=== PATIENT | male | born 1990 | race Caucasian/White ===

== ENCOUNTER 2024-03-28 07:35 | Emergency (ER) | payer OTHER ==
[2024-03-28] MEDS ORDERED: KETOROLAC 30 MG/ML INJ ONE (08:23)
[2024-03-28 08:44] LABS: Absolute Basophils 0.1 K/uL (0-0.5); Absolute Eosinophils 0.1 K/uL (0-0.5); Absolute Lymphocytes (CBC) 1.8 K/uL (0.7-4.9); Absolute Monocytes 0.5 K/uL (0.1-1.3); Absolute Neutrophil 5.1 K/uL (1.8-8.0); Eosinophils % 1.5 % (0-4.4); Hematocrit 44.1 % (39.6-49.0); Hemoglobin 15.3 g/dL (13.6-17.9); Lymphocytes % 23.8 % (15.3-44.8); MCH 30.9 pg (27.0-35.0); MCHC 34.7 g/dL (32.0-36.0); MCV 89.2 fL (80-100); MPV 10.5 fL (7.6-11.3); Neutrophils % 66.7 % (41.7-73.7); Platelets 235 thou/uL (152-406); RBC Red Blood Cell Count 4.95 M/uL (4.33-5.43); Red Cell Distribution Width 13.1 % (12.1-15.2)
--- NOTE | 2024-03-28 09:20 | RAD REPORT ---
Procedure: Chest Single View HISTORY: Chest pain COMPARISON: none FINDINGS: The lungs appear clear of acute infiltrate. No significant pleural effusion noted. The heart is normal size. IMPRESSION: No acute abnormality is displayed.
[2024-03-28 09:23] LABS: ALT/SGPT 33 U/L (16-61); AST/SGOT 24 U/L (15-37); Albumin 3.2 g/dL (3.4-5.0); Albumin/Globulin Ratio 0.9 (1.1-1.8); Alkaline Phosphatase 112 U/L (45-117); Anion Gap 12.3 mEq/L (5.0-15.0); BUN Blood Urea Nitrogen 8 mg/dL (7-18); Bicarbonate 24 mEq/L (21-32); Bilirubin Direct < 0.2 mg/dL (0-0.2); Bilirubin Indirect, Calculated 0.3 mg/dL (0.2-0.8); Bilirubin Total 0.5 mg/dL (0.2-1.0); Globulin 3.4 g/dL (2.3-3.5); Glomerular Filtration Rate 97 ml/min (=/>90); Glucose Level 480 mg/dL (74-106); Potassium 4.3 mEq/L (3.5-5.1); Protein, Total 6.6 g/dL (6.4-8.2); Troponin High Sensitivity 3.4 pg/mL (<58.9)
[2024-03-28 09:25] LABS: Sodium Level 134 mEq/L (136-145)
[2024-03-28] MEDS ORDERED: INSULIN REGULAR (HUMAN) 100 UNIT/ML ONE (09:39)
[2024-03-28] MEDS ORDERED: NA CHLORIDE 0.9% 2,000 ML ONE (09:40)
--- NOTE | 2024-03-28 12:16 | EKG ---
Test Date: 2024-03-28 Test Time: 08:04:32 Pathology Laboratory Technologist: BP MEASUREMENT RESULTS: Intervals: Rate: 67 CA: 140 QRSD: 84 QT: 422 QTc: 445 [place]: P: 41 CA: 140 QRS: 33 T: 19 INTERPRETIVE STATEMENTS: Normal sinus rhythm with sinus arrhythmia Normal ECG No previous ECG available for comparison Electronically Signed On 03-28-24 12:15:25 VAN DRIVER by Leif Erazo
--- NOTE | 2024-03-28 14:18 | ER ---
Nurse's Notes [facility] Name: Adan Kat Age: 33 yrs Sex: Male : 1990 Arrival Date: 03/28/2024 Time: 07:35 Bed 16 Private MD: Diagnosis: Chest pain, unspecified;Hyperglycemia, unspecified Presentation: 03/28 07:51 Chief complaint: Patient states: chest discomfort with L arm discomfort that began at ss 0300 this am. Coronavirus screen: Client denies travel out of the [place] in the last 14 days. Ebola Screen: Patient denies exposure to infectious person. Patient denies travel to an Ebola-affected area in the 21 days before illness onset. Initial Sepsis Screen: Does the patient meet any 2 criteria? No. Patient's initial sepsis screen is negative. Does the patient have a suspected source of infection? No. Patient's initial sepsis screen is negative. Risk Assessment: Do you want to hurt yourself or someone else? Patient reports no desire to harm self or others. Onset of symptoms was March 28, 2024. 07:51 Method Of Arrival: Ambulatory 07:51 Acuity: DONAL 3 ss Triage Assessment: 07:52 General: Appears in no apparent distress. comfortable, Behavior is calm, cooperative. ss Pain: Complains of pain in chest Pain currently is 2 out of 10 on a pain scale. Neuro: Level of Consciousness is awake, alert, obeys commands. Respiratory: Airway is patent Respiratory effort is even, unlabored. Historical: - Allergies: 07:52 No Known Allergies; ss - Home Meds: 07:52 None [Active]; ss - PMHx: 07:52 High cholesterol; Hypertensive disorder; ss - PSHx: 07:52 None; ss - Immunization history:: Client reports having NOT received the Covid vaccine. - Infectious Disease History:: Denies. - Social history:: Smoking status: Patient reports the use of cigarette tobacco products, denies chronic smoking, but will smoke occasionally. - Family history:: not pertinent. Screenin:00 [facility] ED Fall Risk Assessment (Adult) History of falling in the last 3 months, bp including since admission No falls in past 3 months (0 pts) Confusion or Disorientation No (0 pts) Intoxicated or Sedated No (0 pts) Impaired Gait No (0 pts) Mobility Assist Device Used No (0 pt) Altered Elimination No (0 pt) Score/Fall Risk Level 0 - 2 = Low Risk. Abuse screen: Denies threats or abuse. Denies injuries from another. Nutritional screening: No deficits noted. Tuberculosis screening: No symptoms or risk factors identified. Assessment: 08:00 Pain: Complains of pain in chest Pain radiates to left arm Pain began 4 hours ago. bp Cardiovascular: Reports chest pain. 10:00 Reassessment: Patient appears in no apparent distress at this time. Patient is alert, bp oriented x 3, equal unlabored respirations, skin warm/dry/pink. 12:30 Reassessment: Patient appears in no apparent distress at this time. Patient is alert, bp oriented x 3, equal unlabored respirations, skin warm/dry/pink. 14:30 Reassessment: Patient appears in no apparent distress at this time. Patient is alert, bp oriented x 3, equal unlabored respirations, skin warm/dry/pink. Vital Signs: 07:51 BP 141 / 87; Pulse 75; Resp 16; Pulse Ox 97% on R/A; Weight 99.79 kg; Height 5 ft. 9 ss in. ; Pain 2/10; 07:54 Temp 98(O); ss 12:08 BP 126 / 70; Pulse 51; Resp 16; Pulse Ox 96% ; bp 14:30 BP 114 / 58; Pulse 57; Resp 16; Temp 98; Pulse Ox 98% ; bp 07:51 Body Mass Index 32.49 (99.79 kg, 175.26 cm) ss 07:51 Pain Scale: Adult ss ED Course: 07:48 Patient arrived in ED. ra3 07:51 Kevin Millan MD is Attending Physician. rt 07:52 Triage completed. ss 07:52 Arm band placed on right wrist. ss 07:53 Lazaro Martinez, JOSÉ MIGUEL is Primary Nurse. bp 08:00 Patient has correct armband on for positive identification. Provided Education on: N/A. bp Client placed on continuous cardiac and pulse oximetry monitoring. NIBP monitoring applied. athletic monitor on. Pulse ox on. NIBP on. 08:00 Patient maintains SpO2 saturation greater than 95% on room air. bp 08:33 Initial lab(s) drawn, by me, sent to lab. EKG done, by ED staff, reviewed by Kevin Millan MD. Inserted saline lock: 20 gauge in left antecubital area, using aseptic technique. Blood collected. Flushed with 10 mL NS. 09:15 Chest Single View In Process Unspecified. EDMS 14:16 Lorenzo Acosta MD is Referral Physician. rt 14:16 Srinath Jeffers MD is Referral Physician. rt 14:17 Navin Robertson DO is Referral Physician. rt 14:30 No provider procedures requiring assistance completed. IV discontinued, intact, bp bleeding controlled, No redness/swelling at site. Pressure dressing applied. Administered Medications: 08:33 Drug: Ketorolac IVP 15 mg IVP once Route: IVP; Site: left antecubital; bp 09:47 Follow up: Response: No adverse reaction bp 09:46 Drug: NS 0.9% IV 2000 ml IV at 2 bolus Per protocol; to be given as a bolus over 60 bp minutes Route: IV; Rate: 2 bolus; Site: left antecubital; 15:01 Follow up: IV Status: Completed infusion bp 09:46 Drug: Insulin Regular Human Sub-Q 10 units Sub-Q once {Co-Signature: ss (bp Erica Morin RN).} Route: Sub-Q; Site: left upper arm; 14:02 Follow up: Response: No adverse reaction bp Medication: 14:30 VIS not applicable for this client. bp Outcome: 14:17 Discharge ordered by . rt 14:30 Discharged to home ambulatory, with family, bp 14:30 Condition: stable 14:30 Discharge instructions given to patient, Instructed on discharge instructions, follow up and referral plans. medication usage, Demonstrated understanding of instructions, follow-up care, medications, Prescriptions given X 1, 15:01 Patient left the ED. bp Signatures: Dispatcher [employer] EDNJ Erica Morin RN RN ss Peltier, Brian, RN RN bp Turkington, Ryan, MD MD rt Kaleigh Fitzgerald ra3 Erica Morin RN
--- NOTE | 2024-03-28 14:18 | EDPHYS ---
Physician Documentation [facility] Name: Adan Kat Age: 33 yrs Sex: Male : 1990 Arrival Date: 03/28/2024 Time: 07:35 Bed 16 Private MD: ED Physician Kevin Millan HPI: 03/28 08:24 This 33 yrs old White Male presents to ER via Ambulatory with complaints of Chest rt Tightness. 08:24 Patient presents to the ED with left-sided chest pain with tingling to the left arm rt starting about 3. Patient states that is worse When he moves his arm, not worse with walking. Denies other acute complaints at this time, symptoms are moderate in severity, no other aggravating or alleviating factors. . Historical: - Allergies: 07:52 No Known Allergies; ss - Home Meds: 07:52 None [Active]; ss - PMHx: 07:52 High cholesterol; Hypertensive disorder; ss - PSHx: 07:52 None; ss - Immunization history:: Client reports having NOT received the Covid vaccine. - Infectious Disease History:: Denies. - Social history:: Smoking status: Patient reports the use of cigarette tobacco products, denies chronic smoking, but will smoke occasionally. - Family history:: not pertinent. ROS: 08:24 Constitutional: Negative for fever, chills, and weight loss, Respiratory: Negative for rt shortness of breath, cough, wheezing, and pleuritic chest pain, Abdomen/GI: Negative for abdominal pain, nausea, vomiting, diarrhea, and constipation, MS/Extremity: Negative for injury and deformity, Skin: Negative for injury, rash, and discoloration, Neuro: Negative for headache, weakness, numbness, tingling, and seizure, 08:24 Cardiovascular: Positive for chest pain, Negative for edema, Exam: 08:24 Constitutional: This is a well developed, well nourished patient who is awake, alert, rt and in no acute distress. Head/Face: Normocephalic, atraumatic. Chest/axilla: Normal chest wall appearance and motion. Nontender with no deformity. No lesions are appreciated. Cardiovascular: Regular rate and rhythm with a normal S1 and S2. No gallops, murmurs, or rubs. Normal PMI, no JVD. No pulse deficits. Respiratory: Lungs have equal breath sounds bilaterally, clear to auscultation and percussion. No rales, rhonchi or wheezes noted. No increased work of breathing, no retractions or nasal flaring. Abdomen/GI: Soft, non-tender, with normal bowel sounds. No distension or tympany. No guarding or rebound. No evidence of tenderness throughout. Skin: Warm, dry with normal turgor. Normal color with no rashes, no lesions, and no evidence of cellulitis. MS/ Extremity: Pulses equal, no cyanosis. Neurovascular intact. Full, normal range of motion. Neuro: Awake and alert, GCS 15, oriented to person, place, time, and situation. Cranial nerves II-XII grossly intact. Motor strength 5/5 in all extremities. Sensory grossly intact. Cerebellar exam normal. Normal gait. 08:24 ECG was reviewed by the Attending Physician. Vital Signs: 07:51 BP 141 / 87; Pulse 75; Resp 16; Pulse Ox 97% on R/A; Weight 99.79 kg; Height 5 ft. 9 ss in. ; Pain 2/10; 07:54 Temp 98(O); ss 12:08 BP 126 / 70; Pulse 51; Resp 16; Pulse Ox 96% ; bp 14:30 BP 114 / 58; Pulse 57; Resp 16; Temp 98; Pulse Ox 98% ; bp 07:51 Body Mass Index 32.49 (99.79 kg, 175.26 cm) ss 07:51 Pain Scale: Adult ss MDM: 07:58 Medical Screening Exam initiated rt 16:55 Differential diagnosis: Nonspecific chest pain, chest wall pain, acute [place], CAD, rt pneumonia. HEART Score: History: Slightly Suspicious (0), ECG: Normal (0), Age: < or = 45 years (0), Risk Factors: 1 or 2 risk factors (1), Troponin: < or = 1 x Normal Limit (0), Total Score = 1. Data reviewed: vital signs, nurses notes, lab test result(s), EKG, radiologic studies. Consideration of Admission/Observation Escalation of care including admission/observation considered. Patient with 2 negative troponins, low suspicion for acute coronary syndrome, does not require admission at this time. Glucose significantly improving with treatment in the ED, stable for outpatient care.. I considered the following discharge prescriptions or medication management in the emergency department Medications were administered in the Emergency Department. See JUL. Independent interpretation of the following test(s) in the Emergency Department X-Ray: My interpretation is No consolidation seen on my interpretation of x-ray images. Test considered but Not performed: CT: Low suspicion for pulmonary embolism, CT angiogram not decayed. Care significantly affected by the following chronic conditions: Hypertension. Counseling: I had a detailed discussion with the patient and/or guardian regarding the historical points, exam findings, and any diagnostic results supporting the discharge/admit diagnosis, lab results, radiology results, the need for outpatient follow up. Response to treatment: the patient's symptoms have markedly improved after treatment. 03/28 08:42 Order name: Basic Metabolic Panel; Complete Time: 09:27 EDMS 03/28 08:42 Order name: Liver (Hepatic) Function; Complete Time: 09:27 EDMS 03/28 08:42 Order name: Troponin High Sensitivity; Complete Time: 09:27 EDMS 03/28 08:42 Order name: CBC with Automated Diff; Complete Time: 09:27 EDMS 03/28 11:22 Order name: Glucose, Ancillary Testing; Complete Time: 13:38 EDMS 03/28 11:34 Order name: Troponin High Sensitivity; Complete Time: 14:11 rt 03/28 12:53 Order name: Glucose, Ancillary Testing; Complete Time: 13:38 EDMS 03/28 08:35 Order name: Chest Single View; Complete Time: 09:27 EDMS 03/28 08:09 Order name: EKG; Complete Time: 10:52 rt 03/28 10:13 Order name: EKG Electrocardiogram EDMS 03/28 08:09 Order name: Cardiac monitoring; Complete Time: 08:19 rt 03/28 08:09 Order name: EKG - Nurse/Tech; Complete Time: 08:19 rt 03/28 08:09 Order name: IV Saline Lock; Complete Time: 08:33 rt 03/28 08:09 Order name: Labs collected and sent; Complete Time: 08:33 rt 03/28 08:09 Order name: O2 Per Protocol; Complete Time: 08:19 rt 03/28 08:09 Order name: O2 Sat Monitoring; Complete Time: 08:19 rt EC:24 Rate is 67 beats/min. Rhythm is regular, Normal Sinus Rhythm with No ectopy. QRS [place] rt is Normal. CT interval is normal. QRS interval is normal. QT interval is normal. No Q waves. T waves are Normal. No ST changes noted. Interpreted by me. Administered Medications: 08:33 Drug: Ketorolac IVP 15 mg IVP once Route: IVP; Site: left antecubital; bp 09:47 Follow up: Response: No adverse reaction bp 09:46 Drug: NS 0.9% IV 2000 ml IV at 2 bolus Per protocol; to be given as a bolus over 60 bp minutes Route: IV; Rate: 2 bolus; Site: left antecubital; 15:01 Follow up: IV Status: Completed infusion bp 09:46 Drug: Insulin Regular Human Sub-Q 10 units Sub-Q once {Co-Signature: ss (bp Erica Morin RN).} Route: Sub-Q; Site: left upper arm; 14:02 Follow up: Response: No adverse reaction bp Disposition Summary: 03/28/24 14:17 Discharge Ordered Notes: Location: Home rt Problem: new rt Symptoms: have improved rt Condition: Stable rt Diagnosis - Chest pain, unspecified rt - Hyperglycemia, unspecified rt Followup: rt - With: Lorenzo Acosta MD - When: 2 - 3 days - Reason: Followup: rt - With: Srinath Jeffers MD - When: 2 - 3 days - Reason: Followup: rt - With: Navin Robertson DO - When: 2 - 3 days - Reason: Discharge Instructions: - Discharge Summary Sheet rt - Nonspecific Chest Pain, Adult rt - Type 2 Diabetes Mellitus, Diagnosis, Adult rt - Hyperglycemia rt - Type 2 Diabetes Mellitus, Self-Care, Adult rt Forms: - Work release form bp - Medication Reconciliation Form rt - Antibiotic Education rt - Prescription Opioid Use rt - Patient Portal Instructions rt - Leadership Thank You Letter rt Prescriptions: - Metformin 500 mg Oral tablet - take 1 tablet ORAL route once daily for 7 days Then take 1 tablet with morning rt meals AND evening meals; 30 tablet; Refills: 0, Product Selection Permitted Signatures: Dispatcher [employer] Erica Nair RN RN ss Lazaro Martinez RN RN bp Turkington, Ryan, MD MD rt Erica Morin RN ss Corrections: (The following items were deleted from the chart) 10:54 10:52 Chest Single View+RAD.RAD.BRZ ordered. EDMS EDMS 11:42 10:52 BASIC METABOLIC PANEL+C.LAB.BRZ ordered. EDMS EDMS 11: 10:52 CBC+H.LAB.BRZ ordered. EDMS EDMS : 10:52 HEPATIC FUNCTION+C.LAB.BRZ ordered. EDMS EDMS : 10:52 Troponin High Sensitivity+C.LAB.BRZ ordered. EDMS EDMS
[2024-03-28 15:36] VITALS: TEMP 98
[2024-03-28 15:47] VITALS: BP 114/58; O2SAT 98
== END 2024-03-28 15:01 | disposition home or self-care (01) ==
LOC: ER 07:35
DX: R07.89 Other chest pain (principal); R73.9 Hyperglycemia, unspecified; E78.00 Pure hypercholesterolemia, unspecified; I10 Essential (primary) hypertension; F17.210 Nicotine dependence, cigarettes, uncomplicated
CPT/HCPCS: 93005; 85025; 80048; 36415; 82947 ×2; 80076; 84484 ×2; 71045; J7030